=== PATIENT | female | born 2000 | race Two or more races ===

== ENCOUNTER 2022-01-04 21:58 | Emergency (ER) | payer SELFPAY ==
[~2022-01-04] VITALS: Ht 152.4 cm; Wt 132.0 kg
[2022-01-04] MEDS ORDERED: diphenhdrAMINE HCL 50 MG/1 ML VL IM ONE (23:30)
[2022-01-04 23:56] VITALS: BP 126/85
[2022-01-05] MEDS ORDERED: HYDR-3682 PO (00:06)
== END 2022-01-05 00:19 | disposition home or self-care (01) ==
LOC: ER 21:58 → EDBD 21:58 → ER 01-05 00:19
DX: J45.909 Unspecified asthma, uncomplicated (principal); F41.9 Anxiety disorder, unspecified
CPT/HCPCS: 71046; 93005; 96372; 99283; J1200